=== PATIENT | male | born 1995 | race Caucasian/White ===

== ENCOUNTER → 2020-02-17 | Outpatient (CLI) | payer BC | LOC: HYPER 08:44 | DX: L89.154 Pressure ulcer of sacral region, stage 4 (principal); L89.324 Pressure ulcer of left buttock, stage 4; I10 Essential (primary) hypertension; M46.28 Osteomyelitis of vertebra, sacral and sacrococcygeal region; Q05.9 Spina bifida, unspecified; K21.9 Gastro-esophageal reflux disease without esophagitis; F41.9 Anxiety disorder, unspecified; Z86.73 Personal history of transient ischemic attack (TIA), and cerebral infarction without residual deficits ==

== ENCOUNTER → 2020-02-27 | Outpatient (CLI) | payer BC | LOC: HYPER 12:16 | DX: L89.324 Pressure ulcer of left buttock, stage 4 (principal); Q05.9 Spina bifida, unspecified; E66.01 Morbid (severe) obesity due to excess calories; I10 Essential (primary) hypertension; K21.9 Gastro-esophageal reflux disease without esophagitis; F41.9 Anxiety disorder, unspecified; Z86.73 Personal history of transient ischemic attack (TIA), and cerebral infarction without residual deficits; Z68.1 Body mass index [BMI] 19.9 or less, adult ==

== ENCOUNTER → 2020-03-22 | Outpatient (CLI) | payer BC | LOC: HYPER 03-21 12:09 | PROVIDERS: ATTEND Emergency Medicine | DX: L89.324 Pressure ulcer of left buttock, stage 4 (principal); Q05.9 Spina bifida, unspecified; I10 Essential (primary) hypertension; K21.9 Gastro-esophageal reflux disease without esophagitis; F41.9 Anxiety disorder, unspecified; Z86.73 Personal history of transient ischemic attack (TIA), and cerebral infarction without residual deficits ==

== ENCOUNTER → 2020-05-21 | Outpatient (CLI) | payer BC | LOC: HYPER 13:11 | PROVIDERS: ATTEND Emergency Medicine | DX: T81.49XD Infection following a procedure, other surgical site, subsequent encounter (principal); L89.154 Pressure ulcer of sacral region, stage 4; M86.9 Osteomyelitis, unspecified; N39.0 Urinary tract infection, site not specified; Q05.9 Spina bifida, unspecified; I10 Essential (primary) hypertension; F41.9 Anxiety disorder, unspecified; Z86.73 Personal history of transient ischemic attack (TIA), and cerebral infarction without residual deficits; Y83.8 Other surgical procedures as the cause of abnormal reaction of the patient, or of later complication, without mention of misadventure at the time of the procedure ==